=== PATIENT | male | born 1935 | race Caucasian/White ===

== ENCOUNTER 2017-09-24 07:00 | Inpatient (IN) | payer MEDICARE, BC ==
[~2017-09-24] VITALS: Ht 185.4 cm; Wt 91.2 kg
--- NOTE | 2017-11-24 12:08 | MH ---
cc: Rah Mendez MD DATE OF ADMISSION: 12/03/2017 HISTORY OF PRESENT ILLNESS: He is scheduled to be admitted to the hospital on 12/03/2017 with an admitting diagnosis of osteoarthritis of the left knee. HISTORY: The patient is an 82-year-old white male who has had a longstanding history of bilateral knee pain extending back for more than 10 years when the patient became symptomatic with discomfort initially involving his right knee that he associated with a twisting type stress. He had conformed to conservative management in the past which included previous arthroscopic surgery of both knees, as well as, additional treatment, which included multiple cortisone injections as well as a course of viscosupplementation. His symptoms became more pronounced with the passage of time, and he subsequently underwent a right total knee arthroplasty completed at the [place], [place] in May of this past year. The patient did experience some difficulty throughout the postoperative period that included delayed wound healing with some lingering soreness about his knee being noted. He returned to the office in July of this year reporting ongoing pain about his left knee that was continuing to interfere with ambulatory activities. His x-ray studies revealed tricompartmental degenerative changes with a valgus deformity of at least 10 degrees magnitude. Findings and treatment options were reviewed with the patient at that time. The pros and cons of continuing with conservative management versus operative intervention that would involve total knee arthroplasty were outlined in detail. Emphasis was made regarding the fact that the decision to proceed with surgery would be left entirely to the patient's discretion. Initially, the patient elected to continue with conservative management, but did undergo a cortisone injection of his left knee in September of this year for pain management. He returned to the office in the more recent past, indicating that he was becoming progressively more symptomatic with pain and was ready to proceed with operative treatment as had previously been discussed. In compliance with his wishes, he has currently been scheduled for admission in order that the above be accomplished. PAST MEDICAL HISTORY: HOSPITALIZATIONS AND OPERATIONS: In addition to bilateral arthroscopic surgery of the knees and right total knee arthroplasty have included tonsillectomy, colonoscopy, cystoscopy and radiation therapy for history of prostate cancer. The patient denies active medical illnesses. CURRENT MEDICATIONS: Include Lorazepam 2 mg at bedtime, Wellbutrin 150 mg daily and Flomax daily. ALLERGIES: HE DENIES ANY KNOWN DRUG ALLERGIES. REVIEW OF SYSTEMS: He does wear glasses. Denies headaches, seizure or syncope. No sinus congestion or epistaxis. Auditory acuity intact. No tinnitus. No bleeding gums or dysphagia. He has partial upper and lower dentures. Positive history of pneumonia. No tuberculosis. No angina or heart diseases. Appetite is good. Bowel movements are regular. No hepatitis, gallbladder disease, ulcers or hemorrhoids. No urinary tract infection, no kidney stones, no fractures. He has undergone previous psychiatric counseling following a divorce. FAMILY HISTORY: The patient has been a for 1 year. His at 74 years of age due to unspecified cause. He has 1 son and 2 daughters indicated to be in good health. Family history is otherwise positive for diabetes and heart disease. SOCIAL HISTORY: The patient completed a college education. 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 He admits to a 60 year use of tobacco. Currently, averaging less than 1/2 pack per day. Ethanol consumption, primarily limited to a glass of wine daily. PHYSICAL EXAMINATION: VITAL SIGNS: Height 6 feet 1-1/2 inch, weight 194 pounds. GENERAL: Alert, oriented and responsive 82-year-old white male who sits quietly upon the examination table without obvious distress. HEENT: Pupils are equally round and reactive to light. Bilateral corneal arcus. Extraocular movements full. External nares clear. External auditory canal is clear. Semi edentulous. Mucous membranes pink and moist. Pharynx clear. NECK: Supple. Active range of motion with no appreciable pain. Carotid pulse palpable bilaterally. Trachea midline. Thyroid without enlargement. LUNGS: Clear to auscultation and percussion. No CVA tenderness. No discomfort throughout the dorsal lumbar spine. HEART: Regular rhythm, no murmur or gallop. ABDOMEN: Soft, nontender, bowel sounds present. RECTAL: Per primary care physician. EXTREMITIES: Left knee: No obvious swelling or effusion. Valgus deformity with slight lateral joint line tenderness. Apprehension and compression sign negative. Limited mobility in the 115 degree range of motion with discomfort at the extreme of flexion. Very subtle suggestion for crepitation. No collateral ligamentous laxity. Nicki test and Drawer sign negative. Pivot shift and Javier sign positive for lateral compartment pain. Straight leg raising unremarkable at 80 degrees. Satisfactory mobility of the left hip with no associated pain. Antalgic gait. NEUROLOGIC: Cranial nerves 2-12 grossly intact. IMPRESSION: Osteoarthritis, left knee. PLAN: Left total knee arthroplasty. The nature of the planned surgical procedure, the potential complications and risks associated, the expectations of surgery and the consent form were thoroughly reviewed with the patient prior to admission to the hospital. Grant has indicated his full understanding regarding all of the above and given consent to proceed with treatment as outlined. Medical evaluation and clearance for surgery will be completed by his primary care physician, Dr. Gee Dennis preoperatively. Rah Mendez MD NBS/TL , 11:29 AM , 12:07 PM
[2017-12-02] MEDS ORDERED: LORA1TAB12 PO (12:20)
[2017-12-02] MEDS ORDERED: MELA1TAB18 PO (12:20)
[2017-12-02] MEDS ORDERED: BUPR150T3 PO (12:20)
[2017-12-02] MEDS ORDERED: VITA200C3 PO (12:20)
[2017-12-02] MEDS ORDERED: VITA500T83 PO (12:20)
[2017-12-02] MEDS ORDERED: FERR325T18 PO (12:20)
[2017-12-02] MEDS ORDERED: TAMS0.4C4 PO (12:20)
[2017-12-02] MEDS ORDERED: VITA10002 PO (12:20)
[2017-12-03] MEDS ORDERED: ceFAZolin 2 GM PREMIX 50 ML IV SCH (05:45)
[2017-12-03] MEDS ORDERED: POVIDONE IODINE 5% (ANTISEPSIS KIT) 4 APPLICATIONS EACH NARE PRN (05:45)
[2017-12-03] MEDS ORDERED: ACETAMINOPHEN 1000 MG/100 ML 100 ML IV ONE (05:45)
[2017-12-03] MEDS ORDERED: TRANEXAMIC ACID 1 GM POST-OP IV SCH ×2 (05:45)
[2017-12-03] MEDS ORDERED: SODIUM CHLORID 0.9% 500 ML IV PRN (05:45)
[2017-12-03] MEDS ORDERED: CHLORHEXIDINE GLUCONATE 2 % 1 PACK (2 CLOTHS) TOPICAL PRN (05:45)
[2017-12-03] MEDS ORDERED: METOPROLOL TARTRATE 25 MG TAB PO PRN (05:45)
[2017-12-03] MEDS ORDERED: LACTATED RINGER'S 1000 ML IV PRN (05:45)
[2017-12-03] MEDS ORDERED: TRANEXAMIC ACID 1 GM PRIOR TO PROCEDURE IV SCH ×2 (05:45)
[2017-12-03] MEDS ORDERED: POVIDONE IODINE 7.5% SCRUB 118 ML BOTTLE TOPICAL SCH (05:45)
[2017-12-03 06:04] LABS: BILIRUBIN, URINE NEG (NEG); BLOOD, URINE NEG (NEG); GLUCOSE,URINE NEG (NEG); KETONE, URINE NEG (NEG); MUCUS URINE FEW /lpf (OCC); NITRITE,URINE NEG (NEG); PH, URINE 6.5 (5.0-8.5); URINE COLOR YELLOW (YELLW/STRAW); URINE LEUKOCYTE ESTERASE NEG (NEG)
[2017-12-03] MEDS ORDERED: DEXAMETHASONE SOD PHOS 4 MG/ML VIAL ONE (06:05)
[2017-12-03] MEDS ORDERED: KETOROLAC TROMETHAMINE 60 MG/2 ML (IM) VIAL IM ONE (06:05)
[2017-12-03] MEDS ORDERED: MIDAZOLAM HCL 5 MG/5 ML VIAL ONE (06:05)
[2017-12-03] MEDS ORDERED: BUPIVACAINE LIPOSOME PF 1.3% 20 ML VIAL ONE (06:06)
--- NOTE | 2017-12-03 06:06 | RADRPT ---
EXAM DATE: 12/03/2017 5:53 AM EDT AGE/SEX: 82 years / Male INDICATIONS: Evaluate for any pulmonary disease as patient is being pre-oped for total knee surgery. CLINICAL DATA: This is the patient's initial encounter. Patient reports that signs and symptoms have been present for 1 day and indicates a pain score of 0/10. MEDICAL/SURGICAL HISTORY: Emphysema. None. COMPARISON: No prior [facility] exams available for comparison. FINDINGS: 2 AP semierect views of the chest demonstrates the lungs to be symmetrically aerated without evidence of mass, infiltrate or effusion. The cardiomediastinal contours are unremarkable. Osseous structur es are intact. CONCLUSION: No acute cardiopulmonary disease. Electronically signed by: Francisco Arenas MD 12/03/2017 6:05 AM EDT
[2017-12-03] MEDS ORDERED: ceFAZolin INJ 1,000 MG VIAL ONE (06:16)
[2017-12-03] MEDS ORDERED: DO NOT ADM ANY ANTICOAGULANT DRUGS PRN (09:35)
[2017-12-03] MEDS ORDERED: MORPHINE SULFATE 4 MG/ML INJ ONE (09:40)
[2017-12-03] MEDS ORDERED: *morphine SULFATE 8 MG/ML PERIprocedure ONLY ONE (09:43)
[2017-12-03] MEDS ORDERED: DOCUSATE SODIUM 100 MG CAP PO PRN (09:45)
[2017-12-03] MEDS ORDERED: Post-op Orders (for Pharmacy) XX ONE (09:45)
[2017-12-03] MEDS ORDERED: TRANEXAMIC ACID INJ 1,000 MG in SODIUM CHLORIDE 0.9% INJ 100 ML IV SCH (09:45)
[2017-12-03] MEDS ORDERED: NALOXONE HCL 0.4 MG/ML AMP IV PUSH PRN (09:45)
[2017-12-03] MEDS ORDERED: ACETAMINOPHEN/HYDROcodone 325 MG/5 MG TAB PO PRN (09:45)
[2017-12-03] MEDS ORDERED: ACETAMINOPHEN 325 MG TAB PO PRN (09:45)
[2017-12-03] MEDS ORDERED: diphenhydrAMINE HCL 25 MG CAP PO PRN (09:45)
[2017-12-03] MEDS ORDERED: PHARMACY INFORMATION XX ONE (09:45)
--- NOTE | 2017-12-03 09:46 | HHI.FF ---
Face to Face Verification Diagnosis: (1) DJD (degenerative joint disease) of knee Physical Therapy Gait training Knee: Total knee, Protocol: Left, Full weight bearing Left LE Weight Bearing: WB as tolerated Left LE Range of Motion: Active ROM Nursing Dressing Changes: Daily dressing change I have seen patient Grant Escalera on 12/03/17. My clinical findings support the need for the requested home health care services because: Limited ability to care for self High risk of falls I certify that my clinical findings support that this patient is homebound because: Post-op weakness Unsteady gait/balance Unsafe to leave home unassisted Rah Mendez MD December 03, 2017 09:46
[2017-12-03] MEDS ORDERED: *morphine SULFATE 4 MG/ML PERIprocedure ONLY ONE ×2 (09:49→10:02)
--- NOTE | 2017-12-03 09:57 | MP ---
cc: Rah Mendez MD DATE OF OPERATION: 12/03/2017 PREOPERATIVE DIAGNOSIS: Osteoarthritis of the left knee. POSTOPERATIVE DIAGNOSIS: Osteoarthritis of the left knee. PROCEDURE PERFORMED: Left total knee arthroplasty. SURGEON: Rah Mendez MD ANESTHESIA: General endotracheal. INDICATIONS: This is an 82-year-old white male with a longstanding history of bilateral knee pain extending back for at least 10 years when the patient initially became symptomatic following a twisting type stress. He had conformed to conservative management in the past which included arthroscopic surgery of both knees, as well as, additional treatment which included multiple cortisone injections, as well as, a course of viscosupplementation. He became more symptomatic with the passage of time and later underwent a right total knee arthroplasty as completed at the [facility] in [place], [place]. He experienced difficulty throughout the postoperative period that apparently included delayed wound healing and some lingering soreness about his right knee. He returned to the office in July of this year reporting ongoing pain about his left knee that was continuing to interfere with ambulatory activities. His x-ray studies revealed tricompartmental degenerative changes with a valgus deformity of at least 10 degrees magnitude. Findings and treatment options were reviewed. The pros and cons of continuing with conservative management versus operative intervention involving total knee arthroplasty were outlined in detail. Emphasis was made regarding the fact that the decision to proceed with surgery would be left entirely to the patient's discretion. The patient initially elected to continue with conservative management undergoing a cortisone injection of his left knee. He returned to the office more recently indicating that he was becoming progressively more symptomatic with pain and was ready to proceed with operative treatment as had previously been discussed. In compliance with his wishes, he was scheduled for admission at this time in order that total knee replacement be completed. FORMAT: Following induction of satisfactory general anesthesia with endotracheal intubation as completed per the Department of Anesthesia, a tourniquet was established around the proximal portion of the left lower extremity. The extremity proper was isolated with a U-drape thereafter being prepped with Betadine solution and draped into a sterile field in the routine manner. Prior to initiation of the actual procedure, the standard timeout protocol was completed. All parameters were appropriately addressed and confirmed by operating room personnel. The extremity was elevated for approximately 1 minute and the tourniquet, thus inflated to 250 mmHg pressure. A sharp skin incision was initiated midline over the anterior aspect of the knee and developed through underlying subcutaneous tissue with hemostasis maintained by electrocautery. By deepening dissection, the anterior capsule was exposed. A medial capsulotomy completed and the patella subluxed in a lateral orientation. Examination of the joint space revealed tricompartmental degenerative changes being most pronounced about the lateral compartment, but there was complete erosion of articular cartilage and subchondral bone exposed. Significant attenuation of the anterior cruciate ligament. The articular surface of the patella was resected with power saw. The 3 holed guide was utilized for establishing post-holes. The remnant of the anterior cruciate ligament, as well as, medial and lateral meniscus structures were sharply excised. A centering hole was placed in the distal aspect of the femur allowing positioning of the intramedullary guide, the distal femoral cutting jig attached and the distal femur resected. AP measurement noted 75 mm sizing to be appropriate. The matching cutting block was positioned. Anterior, posterior and chamfer cuts were completed. The tibial plateau was thereafter subluxed in an anterior orientation allowing positioning of the extramedullary guide. The tibial plateau was resected and measured with 83 mm sizing determined to be satisfactory. Trial reduction followed utilizing a 75 mm anatomic femoral component, an 83 mm tibial base with a 10 mm bearing insert. The knee was readily brought to full extension. There was no laxity to varus/valgus stress at both 0 and 90 degrees flexed posture. Orientation was confirmed as being appropriate with measurement of the pelvic guide through the mechanical axis of the knee. A trial reduction followed utilizing a 37 mm 3 post-patellar button. Once again, good tracking noted with no tendency toward subluxation. All trial components being removed, the remaining portion of the proximal tibia was prepared for insertion of the permanent component. The joint space was thoroughly lavaged with pulsating antibiotic solution. Hemostasis maintained by electrocautery. An autogenous bone plug was inserted into distal femoral guide hole and thereafter a preparation of Palacos bone cement was utilized in inserting knee components in a sequential fashion which included an 83 mm fixed cruciate tibial plate to which a 10 mm Vanguard tibial bearing insert was secured with locking arrington. The 75 mm Vanguard femoral component was firmly seated onto the distal femur, excess cement being removed, the knee was brought to full extension and thereafter, the 37 mm standard 3 post-patellar button was attached and maintained in place with patellar clamp while cement hardening was completed. Final range of motion assessment noted good tracking and stability throughout the knee. Irrigation was repeated with hemostasis maintained. Autovac drain tubes were inserted through superior stab wounds. The capsule was repaired with 0 Vicryl suture. The remaining portion of the wound was closed in layers in the routine manner. Skin margins being reapproximated with a running subcuticular 3-0 Vicryl suture over which Steri-Strips were applied. Xeroform gauze and a bulky dry sterile dressing were placed. Tourniquet deflated after 64 minutes of tourniquet time, the extremity being supported in a canvas knee splint. Anesthesia was discontinued. He was thereafter transferred to the hospital bed and returned to the recovery room in satisfactory condition having tolerated his operative procedure well. Estimated blood loss was approximately 50-75 mL as determined per anesthesia. All implants were of the [employer] manufacture. MD MARY ANN Fiore/DL , 09:36 AM , 09:56 AM
[2017-12-03] MEDS: DEXT 5%-NACL 0.45% 1000 ML INJ 1,000 ML IV SCH ×2 (10:00→18:24)
[2017-12-03] MEDS: MORPHINE SULFATE 30 MG/30 ML PCA IV SCH (10:34)
--- NOTE | 2017-12-03 11:28 | RADRPT ---
EXAM DATE: 12/03/2017 11:07 AM EDT AGE/SEX: 82 years / Male INDICATIONS: Post-op Left knee. CLINICAL DATA: This is the patient's initial encounter. Patient reports that signs and symptoms have been present for 1 day and indicates a pain score of 8/10. MEDICAL/SURGICAL HISTORY: None. None. COMPARISON: No prior [facility] exams available for comparison. FINDINGS: Status post right knee prosthesis. There is good position and alignment of the prosthesis. The bony s tructures are grossly intact. Postsurgical changes are demonstrated. CONCLUSION: Good position and alignment on this postoperative study. Electronically signed by: Fidel Pena MD 12/03/2017 11:27 AM EDT
[2017-12-03] MEDS: ONDANSETRON ODT 4 MG TAB PO PRN ×2 (11:49→19:44)
[2017-12-03 11:57] VITALS: BP 129/72; PULSE 61; RESP 18; TEMP 97.2; O2SAT 100
[2017-12-03] MEDS ORDERED: PROPOFOL 200 MG/20 ML AMP IV ONE (12:00)
[2017-12-03] MEDS ORDERED: LIDOCAINE HCL 1% PF 5 ML SYRINGE OTHER ONE (12:00)
[2017-12-03] MEDS ORDERED: ONDANSETRON HCL 4 MG/2 ML VIAL IV ONE (12:00)
[2017-12-03] MEDS ORDERED: ROCURONIUM INJ 50 MG/5 ML SYRINGE IV PUSH ONE (12:00)
[2017-12-03] MEDS ORDERED: PHENYLEPH/NS 1000 MCG/10 ML SYR IV ONE (12:00)
[2017-12-03] MEDS ORDERED: ePHEDrine/NS 25 MG/5 ML SYRINGE IV ONE (12:00)
[2017-12-03] MEDS: PCA - TOTAL MG MORPHINE DELIVERED PER SHIFT SCH ×2 (14:00→22:00)
--- NOTE | 2017-12-03 14:32 | EKG ---
Date Performed: 12/03/2017 Time Performed: 06:13:10 PTAGE: 82 years EKG: Sinus rhythm Left axis deviation RBBB with left anterior fascicular block POSSIBLE Inferior infarct - age undeter mined Abnormal ECG NO PREVIOUS TRACING DOCTOR: Mariano Swenson Interpretating Date/Time 12/03/2017 14:31:53
[2017-12-03] MEDS ORDERED: METOCLOPRAMIDE HCL 10 MG/2 ML VIAL IV PUSH PRN (15:45)
[2017-12-03 16:00] VITALS: BP 117/63; PULSE 76; RESP 18; TEMP 97.8; O2SAT 97
[2017-12-03] MEDS ORDERED: LORazepam 1 MG TAB PO PRN (16:15)
[2017-12-03] MEDS ORDERED: MELATONIN 5 MG TAB PO PRN (16:15)
[2017-12-03] MEDS: ACETAMINOPHEN/HYDROcodone 325 MG/5 MG TAB PO PRN ×2 (16:17→22:24)
--- NOTE | 2017-12-03 16:19 | PD.CONS ---
HPI Service [facility] Hospitalists Consult Requested By Dr. Mendez Reason for Consult Medical management Primary Care Physician Unknown Diagnoses: (1) DJD (degenerative joint disease) of knee History of Present Illness 82-year-old male with history of tobacco use, osteoarthritis, chronic back pain , prostate cancer status post seed radiation, admitted to [facility] for left total knee arthroplasty by Dr. Mendez. Hospitalist consulted for medical management. The patient is seen shortly after left total knee arthroplasty. He is still very drowsy but does awaken to voice. He complains of some nausea but no vomiting. Denies any abdominal pain. Last BM he believes was yesterday. He reports 5/10 pain of the left knee, currently in CPM. He denies any other medical complaints at this time including no fever/chills, chest pain , shortness of breath, or urinary complaints. Review of Systems Except as stated in HPI: all other systems reviewed are Neg Past Family Social History Allergies: Coded Allergies: No Known Allergies (Unverified , 12/03/17) Past Medical History osteoarthritis chronic back pain prostate cancer status post seed radiation BPH Past Surgical History ACL repair Right total knee arthroplasty Reported Medications Vitamin B-12 ER (Cyanocobalamin) 1,000 Mcg Tab 1,000 Mcg PO DAILY Vitamin C ER (Ascorbic Acid) 500 Mg Heather 500 Mg PO DAILY Vitamin E 200 Unit Cap 200 Units PO DAILY Ferrous Sulfate 325 Mg (65 Mg Iron) Tablet 325 Mg PO DAILY Melatonin 10 Mg-1 Mg Tab 10 Mg PO HS PRN Lorazepam 1 Mg Tab 1 Mg PO HS PRN Bupropion HCl ER 24 HR (Bupropion HCl) 150 Mg Tab 150 Mg PO DAILY Tamsulosin (Tamsulosin HCl) 0.4 Mg Cap 0.8 Mg PO HS Active Ordered Medications Current Medications Medications (Trade) Dose Ordered Sig/Raman Route Start Time Stop Time Status Last Admin (Lopressor) 25 mg ORDER ADMINISTRATOR PRN PO 12/03/17 05:45 12/06/17 05:44 (Betadine 5% Antisepsis Kit) 1 applic ORDER ADMINISTRATOR PRN EACH NARE 12/03/17 05:45 12/06/17 05:44 12/03/17 05:55 (Chlorhexidine 2% Cloth) 3 pack ORDER ADMINISTRATOR PRN TOPICAL 12/03/17 05:45 12/06/17 05:44 12/03/17 05:30 (Betadine 7.5% Scrub) 1 applic ONCE TOPICAL 12/03/17 05:45 12/06/17 05:44 Tranexamic Acid 1000 mg/Sodium Chloride 110 ml @ 220 mls/hr ONCE IV 12/03/17 05:45 12/03/17 21:00 12/03/17 07:04 Tranexamic Acid 1000 mg/Sodium Chloride 110 ml @ 220 mls/hr ONCE IV 12/03/17 05:45 12/03/17 21:00 12/03/17 09:52 Cefazolin Sodium 1000 mg/Sodium Chloride 100 ml @ 200 mls/hr Q6H IV 12/03/17 13:00 12/04/17 01:29 12/03/17 14:45 (Xarelto) 10 mg Q24H PO 12/04/17 09:00 ([place] 5-325 Mg) 1 tab Q4H PRN PO 12/03/17 09:45 12/03/17 11:49 ([place] 5-325 Mg) 2 tab Q4H PRN PO 12/03/17 09:45 (Tylenol) 650 mg Q6H PRN PO 12/03/17 09:45 (Zofran Odt) 4 mg Q6H PRN PO 12/03/17 09:45 12/03/17 11:49 (Colace) 100 mg BID PRN PO 12/03/17 09:45 (Ambien) 5 mg HS PRN PO 12/03/17 09:45 (Narcan Inj) 0.4 mg UNSCH PRN IV PUSH 12/03/17 09:45 12/05/17 09:44 (Benadryl) 25 mg Q6H PRN PO 12/03/17 09:45 12/05/17 09:44 (Morphine 1 Mg/ ml INFORMATION SECURITY RISK ANALYST) 30 mg UNSCH IV 12/03/17 09:45 12/05/17 09:44 12/03/17 10:34 INFORMATION SECURITY RISK ANALYST Dosage Infused (Pha) 1 Q8HR .XX 12/03/17 14:00 12/05/17 09:44 Dextrose/Sodium Chloride 1,000 ml @ 125 mls/hr Q8H IV 12/03/17 10:00 12/03/17 10:00 ([facility] Nursing Information) ALL NURSING DEPARTME... UNSCH PRN .XX 12/03/17 09:35 12/04/17 09:34 (Reglan Inj) 10 mg Q8H PRN IV PUSH 12/03/17 15:45 Family History Mother and father both with heart disease Social History Smokes cigarettes occasionally, then patient later states he has a cigarette daily Drinks a glass of wine nightly with dinner Denies any illicit drug use Physical Exam Vital Signs Vital Signs Date Time Temp Pulse Resp B/P (MAP) Pulse Ox O2 Delivery O2 Flow Rate FiO2 12/03/17 11:57 97.2 61 18 129/72 (91) 100 12/03/17 10:34 16 12/03/17 10:30 97.8 65 17 121/67 (85) 100 Nasal Cannula 2 12/03/17 10:15 58 19 121/66 (84) 100 Nasal Cannula 2 12/03/17 10:00 64 17 124/67 (86) 100 Nasal Cannula 3 12/03/17 09:45 75 17 124/60 (81) 98 Nasal Cannula 3 12/03/17 09:33 97.6 61 17 129/68 (88) 98 Nasal Cannula 3 12/03/17 05:54 97.7 77 20 133/73 (93) 95 Physical Exam GENERAL: Well-nourished, well-developed male patient in NAD. Drowsy s/p anesthesia. SKIN: Warm and dry. No rash. HEAD: Normocephalic. Atraumatic. EYES: Pupils equal and round. No scleral icterus. No injection or drainage. ENT: No nasal bleeding or discharge. Mucous membranes pink and moist. NECK: Supple. Trachea midline. CARDIOVASCULAR: Regular rate and rhythm. S1, S2 noted. No murmur appreciated. RESPIRATORY: No accessory muscle use. Clear to auscultation. Breath sounds equal bilaterally. GASTROINTESTINAL: Abdomen soft, non-tender, nondistended. Normoactive bowel sounds x4. MUSCULOSKELETAL: Left lower extremity in surgical dressing and Marvel wrap, CDI. NEUROLOGICAL: Awake and alert. No obvious cranial nerve deficits. Motor grossly within normal limits. Normal speech. Laboratory Laboratory Tests Test 12/03/17 05:35 Urine Color YELLOW Urine Turbidity CLEAR Urine pH 6.5 Urine Specific [place] 1.015 Urine Protein NEG Urine Glucose (UA) NEG Urine Ketones NEG Urine Occult Blood NEG Urine Nitrite NEG Urine Bilirubin NEG Urine Urobilinogen LESS THAN 2.0 Urine Leukocyte Esterase NEG Urine RBC 1 Urine WBC LESS THAN 1 Urine Mucus FEW Microscopic Urinalysis Comment CULT NOT INDICATED Imaging Last Impressions Knee X-Ray 12/03/17 0941 Signed Impressions: CONCLUSION: Chest X-Ray 12/03/17 0000 Signed Impressions: CONCLUSION: Assessment and Plan Problem List: (1) DJD (degenerative joint disease) of knee ICD Code: M17.10 - Unilateral primary osteoarthritis, unspecified knee (2) Nausea after anesthesia ICD Code: T88.59XA - Other complications of anesthesia, initial encounter; R11.0 - Nausea Assessment and Plan 82-year-old male with history of tobacco use, osteoarthritis, chronic back pain , prostate cancer status post seed radiation, admitted to [facility] for left total knee arthroplasty by Dr. Mendez. Hospitalist consulted for medical management. Osteoarthritis s/p left total knee arthroplasty: Surgery done 12/03/[address] Mendez. -Continue management per orthopedics -Pain control with [place] prn, and IV morphine INFORMATION SECURITY RISK ANALYST for now -DVT prophylaxis with Xarelto per orthopedic -Physical therapy evaluation -Current plan for patient to discharge to rehab on Wednesday 12/06 -Check post op H&H on 12/04 Post Anesthesia Nausea/Vomiting: suspect secondary to anesthesia -continue zofran ODT prn -added IV reglan prn if not relieved by zofran -continue IVF hydration with D5 1/2NS until tolerating oral intake -continue to monitor -check BMP in am Anxiety/Depression: chronic -continue patient's home meds including Wellbutrin, Ativan prn BPH: chronic -UA unremarkable -continue patient's Flomax -monitor for urine output DVT Prophylaxis: on Xarelto per ortho Discussed Condition With Patient, Sofia Hahn RN, PA-C December 03, 2017 4:19 pm
[2017-12-03] MEDS: TAMSULOSIN HCL 0.4 MG CAP PO SCH (19:44)
[2017-12-03 20:00] VITALS: BP 123/65; PULSE 63; RESP 17; TEMP 97.1; O2SAT 99
[2017-12-03] MEDS: ZOLPIDEM TARTRATE 5 MG TAB PO PRN (23:56)
[2017-12-04 00:01] VITALS: BP 132/67; PULSE 68; RESP 18; TEMP 97.6; O2SAT 97
[2017-12-04] MEDS: DEXT 5%-NACL 0.45% 1000 ML INJ 1,000 ML IV SCH ×3 (02:00→17:59)
[2017-12-04] MEDS: ACETAMINOPHEN/HYDROcodone 325 MG/5 MG TAB PO PRN ×5 (02:20→20:17)
[2017-12-04 04:00] VITALS: BP 121/65; PULSE 68; RESP 18; TEMP 97.7; O2SAT 98
[2017-12-04] MEDS ORDERED: ASPI-183 PO (06:19)
[2017-12-04] MEDS ORDERED: HYDR-3516 PO (06:19)
[2017-12-04] MEDS ORDERED: WALKER WHEELS/F1 MIS (06:21)
[2017-12-04 06:29] LABS: AUTOMATED NEUTROPHIL # 3.1 TH/MM3 (1.8-7.7); BASOPHIL % 0.4 % (0.0-2.0); EOSINOPHIL % 0.9 % (0.0-4.0); HEMATOCRIT 38.4 % (39.0-51.0); HEMOGLOBIN 12.7 GM/DL (13.0-17.0); LYMPH % 20.1 % (9.0-44.0); LYMPHOCYTE # 0.9 TH/MM3 (1.0-4.8); MEAN CELL VOLUME 94.1 FL (80.0-100.0); MEAN CORPUSCULAR HEMOGLOBIN 31.2 PG (27.0-34.0); MEAN CORPUSCULAR HGB CONC 33.2 % (32.0-36.0); MEAN PLATELET VOLUME 9.4 FL (7.0-11.0); MONO % 12.4 % (0.0-8.0); MONOCYTE # 0.6 TH/MM3 (0-0.9); NEUT % 66.2 % (16.0-70.0); PLATELET COUNT 101 TH/MM3 (150-450); RED BLOOD COUNT 4.08 MIL/MM3 (4.50-5.90); RED CELL DISTRIBUTION WIDTH 15.4 % (11.6-17.2); WHITE BLOOD COUNT 4.7 TH/MM3 (4.0-11.0)
[2017-12-04] MEDS: PCA - TOTAL MG MORPHINE DELIVERED PER SHIFT SCH ×3 (06:32→22:00)
[2017-12-04] MEDS: MORPHINE SULFATE 30 MG/30 ML PCA IV SCH (06:51)
[2017-12-04 07:00] LABS: BICARBONATE 28.6 MEQ/L (21.0-32.0); CALCIUM 8.5 MG/DL (8.5-10.1); CREATININE 0.74 MG/DL (0.60-1.30)
[2017-12-04] MEDS: buPROPion HCL 150 MG SUSTAINED RELEASE TAB PO SCH (07:45)
[2017-12-04] MEDS: VITAMIN E 400 UNIT CAP PO SCH (07:45)
[2017-12-04] MEDS: ASCORBIC ACID 500 MG TAB PO SCH (07:45)
[2017-12-04] MEDS: CYANOCOBALAMIN 1,000 MCG TAB PO SCH (07:46)
[2017-12-04] MEDS: FERROUS SULFATE 325 MG (65 MG ELEMENTAL IRON) TAB PO SCH (07:46)
[2017-12-04 08:00] VITALS: BP 124/64; PULSE 70; RESP 18; TEMP 98.3; O2SAT 98
[2017-12-04] MEDS: RIVAROXABAN 10 MG TAB PO SCH (09:05)
[2017-12-04] MEDS: ONDANSETRON ODT 4 MG TAB PO PRN (09:07)
[2017-12-04 12:00] VITALS: BP 131/61; PULSE 79; RESP 18; TEMP 98.5; O2SAT 97
--- NOTE | 2017-12-04 14:19 | HHI.PR ---
Subjective Remarks 82-year-old male with history of tobacco use, osteoarthritis, chronic back pain , prostate cancer status post seed radiation, admitted to [facility] for left total knee arthroplasty by Dr. Mendez. Hospitalist consulted for medical management. The patient is seen shortly after left total knee arthroplasty. He is still very drowsy but does awaken to voice. He complains of some nausea but no vomiting. Denies any abdominal pain. Last BM he believes was yesterday. He reports 5/10 pain of the left knee, currently in CPM. He denies any other medical complaints at this time including no fever/chills, chest pain , shortness of breath, or urinary complaints. 12-04 PATIENT DENIES ANY NEW COMPLAINTS DOES NOT LIKE THE DRAIN THAT IS PLACED IN RIGHT KNEE AREA DW RN AND PT AND CASE MANAGEMENT AM LABS INCREASE ACTIVITY Objective Vitals Vital Signs Date Time Temp Pulse Resp B/P (MAP) Pulse Ox O2 Delivery O2 Flow Rate FiO2 12/04/17 12:00 98.5 79 18 131/61 (84) 97 12/04/17 08:00 98.3 70 18 124/64 (84) 98 12/04/17 06:51 18 12/04/17 06:32 18 12/04/17 04:00 97.7 68 18 121/65 (83) 98 12/04/17 00:01 97.6 68 18 132/67 (88) 97 12/03/17 22:00 18 12/03/17 20:00 97.1 63 17 123/65 (84) 99 12/03/17 16:00 97.8 76 18 117/63 (81) 97 12/03/17 14:00 17 I/O 12/03/17 12/03/17 12/03/17 12/04/17 12/04/17 12/04/17 07:00 15:00 23:00 07:00 15:00 23:00 Intake Total 1810 ml 1279 ml 460 ml Output Total 275 ml 670 ml 1215 ml 200 ml Balance 1535 ml 609 ml -755 ml -200 ml Intake Oral 420 ml 460 ml IV Total 210 ml 859 ml Other 1600 ml Output Urine Total 125 ml 350 ml 1175 ml 200 ml Emesis 200 ml Drainage Total 120 ml 40 ml Estimated Blood Loss 50 ml Autotransfusion 100 ml Result Diagram: 12/04/17 0552 12/04/17 0552 Other Results Laboratory Tests Test 12/03/17 05:35 12/04/17 05:52 Urine Color YELLOW Urine Turbidity CLEAR Urine pH 6.5 Urine Specific [place] 1.015 Urine Protein NEG mg/dL Urine Glucose (UA) NEG mg/dL Urine Ketones NEG mg/dL Urine Occult Blood NEG Urine Nitrite NEG Urine Bilirubin NEG Urine Urobilinogen LESS THAN 2.0 MG/DL Urine Leukocyte Esterase NEG Urine RBC 1 /hpf Urine WBC LESS THAN 1 /hpf Urine Mucus FEW /lpf Microscopic Urinalysis Comment CULT NOT INDICATED White Blood Count 4.7 TH/MM3 Red Blood Count 4.08 MIL/MM3 Hemoglobin 12.7 GM/DL Hematocrit 38.4 % Mean Corpuscular Volume 94.1 FL Mean Corpuscular Hemoglobin 31.2 PG Mean Corpuscular Hemoglobin Concent 33.2 % Red Cell Distribution Width 15.4 % Platelet Count 101 TH/MM3 Mean Platelet Volume 9.4 FL Neutrophils (%) (Auto) 66.2 % Lymphocytes (%) (Auto) 20.1 % Monocytes (%) (Auto) 12.4 % Eosinophils (%) (Auto) 0.9 % Basophils (%) (Auto) 0.4 % Neutrophils # (Auto) 3.1 TH/MM3 Lymphocytes # (Auto) 0.9 TH/MM3 Monocytes # (Auto) 0.6 TH/MM3 Eosinophils # (Auto) 0.0 TH/MM3 Basophils # (Auto) 0.0 TH/MM3 CBC Comment DIFF FINAL Differential Comment Blood Urea Nitrogen 16 MG/DL Creatinine 0.74 MG/DL Random Glucose 107 MG/DL Calcium Level 8.5 MG/DL Sodium Level 142 MEQ/L Potassium Level 3.6 MEQ/L Chloride Level 107 MEQ/L Carbon Dioxide Level 28.6 MEQ/L Anion Gap 6 MEQ/L Estimat Glomerular Filtration Rate 101 ML/MIN Imaging Last Impressions Knee X-Ray 12/03/17 0941 Signed Impressions: CONCLUSION: Good position and alignment on this postoperative study. Chest X-Ray 12/03/17 0000 Signed Impressions: CONCLUSION: No acute cardiopulmonary disease. Objective Remarks GENERAL: Well-nourished, well-developed male patient in NAD. Awake alert and oriented 3 talkative and cooperative SKIN: Warm and dry. No rash. HEAD: Normocephalic. Atraumatic. EYES: Pupils equal and round. No scleral icterus. No injection or drainage. ENT: No nasal bleeding or discharge. Mucous membranes pink and moist. NECK: Supple. Trachea midline. CARDIOVASCULAR: Regular rate and rhythm. S1, S2 noted. No murmur appreciated. RESPIRATORY: No accessory muscle use. Clear to auscultation. Breath sounds equal bilaterally. GASTROINTESTINAL: Abdomen soft, non-tender, nondistended. Normoactive bowel sounds x4. MUSCULOSKELETAL: Left lower extremity in surgical dressing and Marvel wrap, CDI. LEFT KNEE DRAIN IN PLACE NEUROLOGICAL: Awake and alert. No obvious cranial nerve deficits. Motor grossly within normal limits. Normal speech. Insight and judgment is good Mood behaviors appropriate Procedures DATE OF OPERATION: 12/03/2017 PREOPERATIVE DIAGNOSIS: Osteoarthritis of the left knee. POSTOPERATIVE DIAGNOSIS: Osteoarthritis of the left knee. PROCEDURE PERFORMED: Left total knee arthroplasty. Medications and IVs Current Medications Lactated Ringer's 1,000 ml @ 30 mls/hr Q24H PRN IV SEE LABEL COMMENTS Last administered on 12/03/17at 05:50; Start 12/03/17 at 05:45; Stop 12/03/17 at 10:02 ; Status DC Sodium Chloride 500 ml @ 30 mls/hr [id number] PRN IV SEE LABEL COMMENTS; Start at 05:45; Stop 12/03/17 at 10:02; Status DC Metoprolol Tartrate (Lopressor) 25 mg HIDES INSPECTOR PRN PO SEE LABEL COMMENTS; Start 12/03/17 at 05:45; Stop 12/06/17 at 05:44 Povidone Iodine (Betadine 5% Antisepsis Kit) 1 applic HIDES INSPECTOR PRN EACH NARE SEE LABEL COMMENTS Last administered on 12/03/17at 05:55; Start 12/03/17 at 05:45 ; Stop 12/06/17 at 05:44 Chlorhexidine Gluconate (Chlorhexidine 2% Cloth) 3 pack HIDES INSPECTOR PRN TOPICAL SEE LABEL COMMENTS Last administered on 12/03/17at 05:30; Start 12/03/17 at 05:45 ; Stop 12/06/17 at 05:44 Povidone Iodine (Betadine 7.5% Scrub) 1 applic ONCE TOPICAL ; Start 12/03/17 at 05:45; Stop 12/06/17 at 05:44 Acetaminophen 100 ml @ 400 mls/hr ONCE ONCE IV Last administered on at 06:02; Start 12/03/17 at 05:45; Stop 12/03/17 at 05:59; Status DC Cefazolin Sodium/ Dextrose 50 ml @ 100 mls/hr HIDES INSPECTOR IV Last administered on 12/03/17at 07:14; Start 12/03/17 at 05:45; Stop 12/03/17 at 10:02; Status DC Tranexamic Acid 1000 mg/Sodium Chloride 110 ml @ 220 mls/hr ONCE IV Last administered on 12/03/17at 07:04; Start 12/03/17 at 05:45; Stop 12/03/17 at 21:00 ; Status DC Tranexamic Acid 1000 mg/Sodium Chloride 110 ml @ 220 mls/hr ONCE IV Last administered on 12/03/17at 09:52; Start 12/03/17 at 05:45; Stop 12/03/17 at 21:00 ; Status DC Midazolam HCl (Versed Inj) 5 mg STK-MED ONCE .ROUTE ; Start 12/03/17 at 06:05; Stop 12/03/17 at 06:06; Status DC Ketorolac Tromethamine (Toradol Inj) 60 mg STK-MED ONCE IM ; Start 12/03/17 at 06:05; Stop 12/03/17 at 06:06; Status DC Dexamethasone Sodium Phosphate (Decadron Inj) 8 mg STK-MED ONCE .ROUTE ; Start 12/03/17 at 06:05; Stop 12/03/17 at 06:06; Status DC Bupivacaine Liposome (Exparel Pf 1.3% Inj) 20 ml STK-MED ONCE .ROUTE ; Start at 06:06; Stop 12/03/17 at 06:07; Status DC Cefazolin Sodium (Ancef Inj) 2,000 mg STK-MED ONCE .ROUTE Last administered on 12/03/17at 07:33; Start 12/03/17 at 06:16; Stop 12/03/17 at 06:17; Status DC Fentanyl Citrate (fentaNYL INJ) 200 mcg STK-MED ONCE .ROUTE ; Start 12/03/17 at 09:40; Stop 12/03/17 at 09:41; Status DC Morphine Sulfate (Morphine Inj) 4 mg STK-MED ONCE .ROUTE ; Start 12/03/17 at 09: 40; Stop 12/03/17 at 09:41; Status DC Fentanyl Citrate (fentaNYL INJ) 200 mcg STK-MED ONCE .ROUTE ; Start 12/03/17 at 09:42; Stop 12/03/17 at 09:43; Status DC Morphine Sulfate (*morphine INJ PERIprocedure ONLY) 8 mg STK-MED ONCE .ROUTE Last administered on 12/03/17at 09:43; Start 12/03/17 at 09:43; Stop 12/03/17 at 09:44; Status DC Cefazolin Sodium 1000 mg/Sodium Chloride 100 ml @ 200 mls/hr Q6H IV Last administered on 12/03/17at 23:56; Start 12/03/17 at 13:00; Stop 12/04/17 at 01:29 ; Status DC Miscellaneous Information ([facility] Post-op Orders (for Pharmacy)) STAT ONCE XX ; Start 12/03/17 at 09:45; Stop 12/03/17 at 09:55; Status DC Rivaroxaban (Xarelto) 10 mg Q24H PO Last administered on 12/04/17at 09:05; Start 12/04/17 at 09:00 Miscellaneous Medication ([facility] Pharmacy Information) ONCE ONCE XX ; Start at 09:45; Stop 12/03/17 at 09:55; Status DC Acetaminophen/ Hydrocodone Bitart ([place] 5-325 Mg) 1 tab Q4H PRN PO PAIN LESS THAN 5 ON SCALE Last administered on 12/03/17at 11:49; Start 12/03/17 at 09:45 Acetaminophen/ Hydrocodone Bitart ([place] 5-325 Mg) 2 tab Q4H PRN PO PAIN SCALE 5 TO 10 Last administered on 12/04/17at 11:19; Start 12/03/17 at 09:45 Acetaminophen (Tylenol) 650 mg Q6H PRN PO Temp > 101; Start 12/03/17 at 09:45 Tranexamic Acid 1000 mg/Sodium Chloride 110 ml @ 200 mls/hr UNSCH IV ; Start at 09:45; Stop 12/03/17 at 10:17; Status Cancel Ondansetron HCl (Zofran Odt) 4 mg Q6H PRN PO NAUSEA OR VOMITING Last administered on 12/04/17at 09:07; Start 12/03/17 at 09:45 Docusate Sodium (Colace) 100 mg BID PRN PO constipation Last administered on at 20:16; Start 12/03/17 at 09:45 Zolpidem Tartrate (Ambien) 5 mg HS PRN PO SLEEP Last administered on 12/03/17at 23:56; Start 12/03/17 at 09:45 Naloxone HCl (Narcan Inj) 0.4 mg UNSCH PRN IV PUSH RESPIRATORY RATE LESS THAN 10; Start 12/03/17 at 09:45; Stop 12/05/17 at 09:44 Diphenhydramine HCl (Benadryl) 25 mg Q6H PRN PO ITCHING; Start 12/03/17 at 09: 45; Stop 12/05/17 at 09:44 Morphine Sulfate (Morphine 1 Mg/ ml ELECTRIC METER REPAIRER) 30 mg UNSCH IV Last administered on at 06:51; Start 12/03/17 at 09:45; Stop 12/05/17 at 09:44 ELECTRIC METER REPAIRER Dosage Infused (Pha) 1 Q8HR .XX Last administered on 12/04/17at 06:32; Start 12/03/17 at 14:00; Stop 12/05/17 at 09:44 Dextrose/Sodium Chloride 1,000 ml @ 125 mls/hr Q8H IV Last administered on at 07:47; Start 12/03/17 at 10:00 Morphine Sulfate (*morphine INJ PERIprocedure ONLY) 4 mg STK-MED ONCE .ROUTE Last administered on 12/03/17at 09:49; Start 12/03/17 at 09:49; Stop 12/03/17 at 09:50; Status DC Miscellaneous Information ([facility] Nursing Information) ALL NURSING DEPARTME... UNSCH PRN .XX SEE LABEL COMMENTS; Start 12/03/17 at 09:35; Stop 12/04/17 at 09: 34; Status DC Morphine Sulfate (*morphine INJ PERIprocedure ONLY) 4 mg STK-MED ONCE .ROUTE Last administered on 12/03/17at 10:02; Start 12/03/17 at 10:02; Stop 12/03/17 at 10:03; Status DC Metoclopramide HCl (Reglan Inj) 10 mg Q8H PRN IV PUSH nausea/vomiting Last administered on 12/03/17at 16:18; Start 12/03/17 at 15:45 Bupropion HCl (Wellbutrin Sr) 150 mg DAILY PO Last administered on 12/04/17at 07 :45; Start 12/04/17 at 09:00 Cyanocobalamin (Vitamin B12) 1,000 mcg DAILY PO Last administered on 12/04/17at 07:46; Start 12/04/17 at 09:00 Ferrous Sulfate (Ferrous Sulfate) 325 mg DAILY PO Last administered on at 07:46; Start 12/04/17 at 09:00 Lorazepam (Ativan) 1 mg HS PRN PO ANXIETY AND/OR INSOMNIA; Start 12/03/17 at 16 :15 Tamsulosin HCl (Flomax) 0.8 mg HS PO Last administered on 12/03/17at 19:44; Start 12/03/17 at 21:00 Ascorbic Acid (Vitamin C) 500 mg DAILY PO Last administered on 12/04/17at 07:45 ; Start 12/04/17 at 09:00 Melatonin (Melatonin) 10 mg HS PRN PO SLEEP; Start 12/03/17 at 16:15 Vitamin E (Vitamin E) 400 units DAILY PO Last administered on 12/04/17at 07:45; Start 12/04/17 at 09:00 A/P Problem List: (1) DJD (degenerative joint disease) of knee ICD Code: M17.10 - Unilateral primary osteoarthritis, unspecified knee (2) Nausea after anesthesia ICD Code: T88.59XA - Other complications of anesthesia, initial encounter; R11.0 - Nausea Assessment and Plan 82-year-old male with history of tobacco use, osteoarthritis, chronic back pain , prostate cancer status post seed radiation, admitted to [facility] for left total knee arthroplasty by Dr. Mendez. Hospitalist consulted for medical management. Osteoarthritis s/p left total knee arthroplasty: Surgery done 12/03/[address] Mendez. -Continue management per orthopedics -Pain control with [place] prn, and IV morphine ELECTRIC METER REPAIRER for now -DVT prophylaxis with Xarelto per orthopedic -Physical therapy evaluation -Current plan for patient to discharge to rehab on Wednesday 12/06 -Check post op H&H on 12/04 Post Anesthesia Nausea/Vomiting: suspect secondary to anesthesia -continue zofran ODT prn -added IV reglan prn if not relieved by zofran -continue IVF hydration with D5 1/2NS until tolerating oral intake -continue to monitor -check BMP in am Anxiety/Depression: chronic -continue patient's home meds including Wellbutrin, Ativan prn BPH: chronic -UA unremarkable -continue patient's Flomax -monitor for urine output DVT Prophylaxis: on Xarelto per ortho Discharge Planning pending ortho clearance Problem Qualifiers (1) DJD (degenerative joint disease) of knee: Qualified Codes: M17.12 - Unilateral primary osteoarthritis, left knee Scooby Galvin DO December 04, 2017 14:19
[2017-12-04 16:00] VITALS: BP 119/58; PULSE 81; RESP 18; TEMP 97.3; O2SAT 98
[2017-12-04 20:00] VITALS: BP 125/58; PULSE 80; RESP 20; TEMP 98.5; O2SAT 98
[2017-12-04] MEDS: TAMSULOSIN HCL 0.4 MG CAP PO SCH (20:16)
[2017-12-05] VITALS: BP 129/60; PULSE 83; RESP 20; TEMP 98.1; O2SAT 96
[2017-12-05] MEDS: ACETAMINOPHEN/HYDROcodone 325 MG/5 MG TAB PO PRN ×5 (00:09→20:31)
[2017-12-05] MEDS: ZOLPIDEM TARTRATE 5 MG TAB PO PRN (00:09)
[2017-12-05] MEDS: DEXT 5%-NACL 0.45% 1000 ML INJ 1,000 ML IV SCH ×3 (02:00→17:01)
[2017-12-05] MEDS: PCA - TOTAL MG MORPHINE DELIVERED PER SHIFT SCH (06:00)
--- NOTE | 2017-12-05 07:09 | MD ---
cc: Rah Mendez MD,Gee DIAZ DATE OF DISCHARGE: 12/06/2017 ADMITTING DIAGNOSES: Osteoarthritis of the left knee. DISCHARGE DIAGNOSES: Osteoarthritis of the left knee. HISTORY: An 82-year-old white male with a longstanding history of bilateral knee pain extending back for at least 10 years, for which he had been treated in the past in a conservative manner, but became increasingly more symptomatic that subsequently resulted in him undergoing a right total knee arthroplasty within the past year or two as completed at the [facility] in [place]. He did have some difficulty throughout his postoperative period including delayed wound healing and lingering soreness, but was subsequently able to resume ambulatory activities. during this interval of time, he became progressively more symptomatic with pain about his left knee for which he was seen by the undersigned physician. His x-ray studies revealed tricompartmental degenerative changes with a valgus deformity of at least 10 degrees magnitude. Findings and treatment options were reviewed. The pros and cons of continuing with conservative management versus operative intervention that would involve a total knee replacement were outlined. Emphasis was made regarding the fact that the decision to proceed with surgery would be left entirely to the patient's discretion. He initially elected to continue with conservative management being treated with a cortisone injection. Unfortunately, he was unable to appreciate lasting benefit and returned to the office more recently indicating that he was ready to proceed with surgery as had previously been discussed. In compliance with his wishes, he was scheduled for admission at this time in order that the above be accomplished. His physical examination at the time of admission revealed no obvious swelling or effusion about the left knee. There was valgus deformity with lateral joint line tenderness. Apprehension and compression sign were negative. Limited mobility in the 115 degree range of motion with discomfort at the extreme of flexion. Subtle suggestion for crepitation. No collateral ligamentous laxity. Nicki test and drawer sign negative. Pivot shift and Javier sign positive for lateral compartment pain. Straight leg raising unremarkable at 80 degrees. Satisfactory mobility of the left hip with no associated pain, antalgic gait. HOSPITAL COURSE: Prior to admission to the hospital, the patient had undergone medical evaluation and clearance for surgery as completed by his primary care physician, Dr. Gee Dennis. He was taken to the operating room on 12/03/2017 and on that date underwent a left total knee arthroplasty completed in an uncomplicated manner. The patient was noted to have tolerated his operative procedure well and his postoperative course, stable thereafter. Hemoglobin and hematocrit assessment postoperatively was 12.7 and 38.4 respectively. The patient was progressively mobilized under the guidance of physical therapy being permitted weightbearing to tolerance about the left lower extremity. Followup examination of his surgical wound noted to be intact, healing favorably with no evidence of infection. Medical followup per the hospitalist service. DVT prophylaxis initiated. Transitional Care Manager consulted to assist with discharge planning. The patient had indicated his preference to be discharged to a rehab facility for continued mobilization upon discharge. Plans were finalized in this regard and pending medical clearance, he was scheduled for transfer on the third postoperative day, at which time he was noted to be making slow, but steady progress with regards to his rehab program. He was scheduled to be seen in office followup in approximately 4 weeks. CONDITION ON DISCHARGE: Stable and prognosis favorable. DISCHARGE MEDICATIONS: Included hydrocodone 5/325, #40 and aspirin 325 mg 1 tab twice daily for 3 weeks, #30. Rah Mendez MD NBS/DL , 06:47 AM , 07:07 AM
[2017-12-05 07:11] LABS: AUTOMATED NEUTROPHIL # 3.4 TH/MM3 (1.8-7.7); BASOPHIL % 0.3 % (0.0-2.0); EOSINOPHIL % 0.4 % (0.0-4.0); HEMATOCRIT 36.3 % (39.0-51.0); HEMOGLOBIN 12.4 GM/DL (13.0-17.0); LYMPH % 13.7 % (9.0-44.0); LYMPHOCYTE # 0.6 TH/MM3 (1.0-4.8); MEAN CELL VOLUME 92.7 FL (80.0-100.0); MEAN CORPUSCULAR HEMOGLOBIN 31.6 PG (27.0-34.0); MEAN CORPUSCULAR HGB CONC 34.1 % (32.0-36.0); MEAN PLATELET VOLUME 9.1 FL (7.0-11.0); MONOCYTE # 0.6 TH/MM3 (0-0.9); NEUT % 73.6 % (16.0-70.0); PLATELET COUNT 114 TH/MM3 (150-450); RED BLOOD COUNT 3.91 MIL/MM3 (4.50-5.90); RED CELL DISTRIBUTION WIDTH 15.8 % (11.6-17.2); WHITE BLOOD COUNT 4.7 TH/MM3 (4.0-11.0)
[2017-12-05 07:35] LABS: AST (GOT) 19 U/L (15-37); BICARBONATE 27.6 MEQ/L (21.0-32.0); BLOOD UREA NITROGEN 17 MG/DL (7-18); CALCIUM 8.7 MG/DL (8.5-10.1); CHLORIDE 105 MEQ/L (98-107); CREATININE 0.78 MG/DL (0.60-1.30); GLOMERULAR FILTRATION RATE 95 ML/MIN (>89); GLUCOSE,RANDOM 109 MG/DL (74-106); MAGNESIUM 2.1 MG/DL (1.5-2.5); SODIUM (NA) 140 MEQ/L (136-145)
[2017-12-05 07:37] LABS: ALT (GPT) 20 U/L (12-78); PHOSPHORUS 1.8 MG/DL (2.5-4.9)
[2017-12-05 07:46] LABS: ALKALINE PHOSPHATASE 68 U/L (45-117); TOTAL BILIRUBIN ADULT 0.8 MG/DL (0.2-1.0)
[2017-12-05 08:00] VITALS: BP 108/69; PULSE 89; RESP 18; TEMP 98.2; O2SAT 96
[2017-12-05] MEDS: buPROPion HCL 150 MG SUSTAINED RELEASE TAB PO SCH (09:50)
[2017-12-05] MEDS: ASCORBIC ACID 500 MG TAB PO SCH (09:50)
[2017-12-05] MEDS: FERROUS SULFATE 325 MG (65 MG ELEMENTAL IRON) TAB PO SCH (09:50)
[2017-12-05] MEDS: VITAMIN E 400 UNIT CAP PO SCH (09:50)
[2017-12-05] MEDS: RIVAROXABAN 10 MG TAB PO SCH (09:50)
--- NOTE | 2017-12-05 09:50 | HHI.PR ---
Subjective Remarks Overall doing well. Pain control. Complaint of constipation. Objective Vitals Vital Signs Date Time Temp Pulse Resp B/P (MAP) Pulse Ox O2 Delivery O2 Flow Rate FiO2 12/05/17 06:00 18 12/05/17 00:00 98.1 83 20 129/60 (83) 96 12/04/17 22:00 18 12/04/17 20:00 98.5 80 20 125/58 (80) 98 12/04/17 16:00 97.3 81 18 119/58 (78) 98 12/04/17 14:00 17 12/04/17 12:00 98.5 79 18 131/61 (84) 97 I/O 12/04/17 12/04/17 12/04/17 12/05/17 12/05/17 12/05/17 07:00 15:00 23:00 07:00 15:00 23:00 Intake Total 460 ml 612.6 ml 360 ml Output Total 1215 ml 230 ml 20 ml Balance -755 ml 382.6 ml 340 ml Intake Oral 460 ml 600 ml 360 ml IV Total 12.6 ml Output Urine Total 1175 ml 200 ml Drainage Total 40 ml 30 ml 20 ml # Voids 2 3 # Bowel Movements 0 Result Diagram: 12/05/1725 12/05/17624 Objective Remarks GENERAL: This is a well-nourished, well-developed patient, in no apparent distress. CARDIOVASCULAR: Regular rate and rhythm RESPIRATORY: Clear to auscultation. Breath sounds equal bilaterally. No wheezes , rales, or rhonchi. Abdomen: Soft nontender normoactive bowel sounds MUSCULOSKELETAL: Extremities without clubbing, cyanosis, or edema. Left knee bandage clean dry and intact NEURO: Alert & Oriented x4 to person, place, time, situation. Moves all ext x4 Procedures DATE OF OPERATION: 12/03/2017 PREOPERATIVE DIAGNOSIS: Osteoarthritis of the left knee. POSTOPERATIVE DIAGNOSIS: Osteoarthritis of the left knee. PROCEDURE PERFORMED: Left total knee arthroplasty. A/P Problem List: (1) DJD (degenerative joint disease) of knee ICD Code: M17.10 - Unilateral primary osteoarthritis, unspecified knee (2) Nausea after anesthesia ICD Code: T88.59XA - Other complications of anesthesia, initial encounter; R11.0 - Nausea Assessment and Plan 82-year-old male with history of tobacco use, osteoarthritis, chronic back pain , prostate cancer status post seed radiation, admitted to [facility] for left total knee arthroplasty by Dr. Mendez. Osteoarthritis s/p operative day #2 left total knee arthroplasty: Surgery done by Dr. Mendez. -Continue management per orthopedics -Pain control with [place] prn, -DVT prophylaxis with Xarelto per orthopedic -Continue with physical therapy -Current plan for patient to discharge to rehab on Wednesday 12/06 Post Anesthesia Nausea/Vomiting: suspect secondary to anesthesia, resolved and no further complaints -continue zofran ODT prn -added IV reglan prn if not relieved by zofran Anxiety/Depression: chronic -continue patient's home meds including Wellbutrin, Ativan prn BPH: chronic -UA unremarkable -continue patient's Flomax Constipation continue postoperative bowel regimen DVT Prophylaxis: on Xarelto per ortho Discharge Planning To [facility] facility in the morning. Problem Qualifiers (1) DJD (degenerative joint disease) of knee: Qualified Codes: M17.12 - Unilateral primary osteoarthritis, left knee Temitope Humphreys MD December 05, 2017 09:50
[2017-12-05] MEDS: CYANOCOBALAMIN 1,000 MCG TAB PO SCH (09:51)
[2017-12-05] MEDS ORDERED: SENNOSIDES 8.6 MG TAB PO PRN (10:00)
[2017-12-05] MEDS ORDERED: MAGNESIUM HYDROXIDE SUSP 30 ML CUP PO PRN (10:00)
[2017-12-05] MEDS ORDERED: BISACODYL 10 MG SUPP RECTAL PRN (10:00)
[2017-12-05] MEDS ORDERED: LACTULOSE SYRUP 20 GM/30 ML CUP PO PRN (10:00)
[2017-12-05 12:00] VITALS: BP 122/68; PULSE 85; RESP 18; TEMP 98; O2SAT 98
[2017-12-05 15:24] LABS: HEMOGLOBIN A1C 5.1 % (4.3-6.0)
[2017-12-05 20:00] VITALS: BP 123/61; PULSE 95; RESP 18; TEMP 98; O2SAT 98
[2017-12-05] MEDS: DOCUSATE SODIUM 50 MG/SENNA 8.6 MG TAB PO SCH (20:29)
[2017-12-05] MEDS: TAMSULOSIN HCL 0.4 MG CAP PO SCH (20:29)
[2017-12-06 00:01] VITALS: BP 124/80; PULSE 84; RESP 17; TEMP 98.8; O2SAT 98
[2017-12-06] MEDS: DEXT 5%-NACL 0.45% 1000 ML INJ 1,000 ML IV SCH ×2 (02:00→09:42)
[2017-12-06] MEDS: ACETAMINOPHEN/HYDROcodone 325 MG/5 MG TAB PO PRN ×2 (03:52→09:39)
[2017-12-06 04:00] VITALS: BP 131/58; PULSE 92; RESP 18; TEMP 98.3; O2SAT 96
[2017-12-06 08:00] VITALS: BP 126/59; PULSE 74; RESP 18; TEMP 97.6; O2SAT 93
[2017-12-06] MEDS: ASCORBIC ACID 500 MG TAB PO SCH (09:40)
[2017-12-06] MEDS: CYANOCOBALAMIN 1,000 MCG TAB PO SCH (09:40)
[2017-12-06] MEDS: buPROPion HCL 150 MG SUSTAINED RELEASE TAB PO SCH (09:40)
[2017-12-06] MEDS: RIVAROXABAN 10 MG TAB PO SCH (09:40)
[2017-12-06] MEDS: FERROUS SULFATE 325 MG (65 MG ELEMENTAL IRON) TAB PO SCH (09:40)
[2017-12-06] MEDS: DOCUSATE SODIUM 50 MG/SENNA 8.6 MG TAB PO SCH (09:40)
[2017-12-06] MEDS: VITAMIN E 400 UNIT CAP PO SCH (09:41)
[2017-12-06] MEDS ORDERED: SOD PHOSPHATE/SOD BIPHOSPHATE (ADULT) ENEMA 133ML RECTAL PRN (13:45)
== END 2017-12-06 16:53 | DRG 470 ==
LOC: HSDI 12-03 05:11 → N06B 12-03 10:57
PROVIDERS: ADMIT Orthopaedic Surgery; ATTEND Orthopaedic Surgery
PROC: 3E0T3BZ Introduction of Anesthetic Agent into Peripheral Nerves and Plexi, Percutaneous Approach (ICD-10-PCS; 2017-12-03)
PROC: 0SRD0J9 Replacement of Left Knee Joint with Synthetic Substitute, Cemented, Open Approach (ICD-10-PCS; principal; 2017-12-03 06:51)
DX: M17.12 Unilateral primary osteoarthritis, left knee (principal); F32.9 Major depressive disorder, single episode, unspecified; M21.062 Valgus deformity, not elsewhere classified, left knee; M54.9 Dorsalgia, unspecified; G89.29 Other chronic pain; N40.0 Benign prostatic hyperplasia without lower urinary tract symptoms; R11.2 Nausea with vomiting, unspecified; T88.59XA Other complications of anesthesia, initial encounter; K59.00 Constipation, unspecified; F17.210 Nicotine dependence, cigarettes, uncomplicated; F41.9 Anxiety disorder, unspecified; Z85.46 Personal history of malignant neoplasm of prostate; Z92.3 Personal history of irradiation; Z96.651 Presence of right artificial knee joint
CPT/HCPCS: 71045; 73560; 80048; 80053; 81001; 83036; 83735; 84100; 84439; 84443; 85025; 86850; 86900; 86901; 88305; 93005; 94150; C1776; C9290; J0131; J0690; J1100; J1885; J2250; J2270; J2370; J2405; J2765; J3010; J7120; L1830